=== PATIENT | female | born 1965 | race Caucasian/White ===

== ENCOUNTER 2025-02-22 14:24 | Outpatient (CLI) | payer OTHER, SELFPAY | END 2025-02-22 14:25 | disposition home or self-care (01) | PROVIDERS: Visit Provider Family Medicine | DX: E78.5 Hyperlipidemia, unspecified (principal); Z13.1 Encounter for screening for diabetes mellitus | CPT/HCPCS: 80061; 82947 ==

== ENCOUNTER 2025-04-22 10:43 | Outpatient (CLI) | payer OTHER, SELFPAY ==
[2025-04-23 21:29] LABS: HPV Source Cervical/Vag
[2025-04-26 11:35] LABS: Pap Test Digital Imaging Done
== END 2025-04-22 10:44 | disposition home or self-care (01) ==
PROVIDERS: PCP Family Medicine; Visit Provider Family Medicine
DX: Z12.4 Encounter for screening for malignant neoplasm of cervix (principal)
CPT/HCPCS: 87624; 87625; 88141; 88142; 88175